=== PATIENT | female | born 1980 | race Caucasian/White ===

== ENCOUNTER → 2016-09-20 | Outpatient (CLI) | payer OTHER ==
[~2016-09-20] MED LIST: ATIVAN0.5 MG PO; BUSPIRONE HCL10 MG PO; LEVOTHYROXINE 0.15MG PO; PROZAC20 MG PO; TOPAMAX 100 MG100 MG PO; UNICOMPLEX M TA1 TA1 PO
== END ==
LOC: LITH 06:10
DX: N20.0 Calculus of kidney (principal); F41.9 Anxiety disorder, unspecified; F32.9 Major depressive disorder, single episode, unspecified; F43.10 Post-traumatic stress disorder, unspecified; G43.909 Migraine, unspecified, not intractable, without status migrainosus